=== PATIENT | female | born 1995 | race Caucasian/White ===

== ENCOUNTER 2021-07-21 12:06 | Emergency (ER) | payer OTHER ==
[~2021-07-21] VITALS: Ht 165.1 cm; Wt 91.6 kg
[2021-07-21 12:11] VITALS: BP 125/72
[2021-07-21] MEDS ORDERED: KETOROLAC 30 MG/ML VIAL IM ONE (12:25)
--- NOTE | 2021-07-21 12:31 | NUR ---
25 Y/O FEMALE BIB SELF WITH C/O BACK PAIN X2 WEEKS. STATES SHE PICKED UP HER SON 2 WEEKS AGO AND FELT BACK PAIN, HAS BEEN HAVING INTERMITTENT BACK PAIN SINCE, RADIATING TO HER NECK. REPORTS EPISODES OF DIZZINES. REPORTS TAKING MEDICATION FOR PAIN WITH SOME RELIEF. NO BRUISING OR TRAUMA NOTED. MEDHX: DENIES ALLERGIES: DENIES
--- NOTE | 2021-07-21 12:39 | NUR ---
LAB AT BEDSIDE
[2021-07-21 12:50] LABS: BASOPHILS # (AUTO) 0.1 K/uL (0.00-0.22); BASOPHILS % (AUTO) 0.7 % (0.0-2.0); EOSINOPHILS # (AUTO) 0.1 K/uL (0-0.4); EOSINOPHILS % (AUTO) 1.3 % (0.0-4.0); HEMATOCRIT 37.5 % (36-48); HEMOGLOBIN 12.5 g/dL (12.0-16.0); LYMPHOCYTES # (AUTO) 1.9 K/uL (2.5-16.5); LYMPHOCYTES % (AUTO) 23.4 % (20.5-51.1); MEAN CORPUSCULAR HEMOGLOBIN 28 pg (27-31); MEAN CORPUSCULAR HGB CONC 33 g/dL (33-37); MONOCYTES # (AUTO) 0.4 K/uL (0.8-1.0); MONOCYTES % (AUTO) 4.9 % (1.7-9.3); NEUTROPHILS # (AUTO) 5.8 K/uL (1.8-7.7); NEUTROPHILS % (AUTO) 69.7 % (42.2-75.2); PLATELET COUNT (AUTO) 352 K/uL (140-450); RED BLOOD CELL COUNT(AUTO) 4.41 MIL/uL (4.20-5.40); RED CELL DISTRIBUTION WIDTH 14.8 % (11.6-13.7); WHITE BLOOD COUNT (AUTO) 8.3 K/uL (4.8-10.8)
[2021-07-21 13:04] LABS: ALBUMIN 3.6 g/dL (3.4-5.0); ANION GAP 10.2 (8-16); CARBON DIOXIDE 31.3 mmol/L (21-32); POTASSIUM 3.5 mmol/L (3.5-5.1); TOTAL BILIRUBIN 0.3 mg/dL (0.0-1.0)
[2021-07-21] MEDS ORDERED: LIDO1ADH47 TP (13:22)
[2021-07-21] MEDS ORDERED: ACET-8386 PO (13:22)
[2021-07-21 13:29] VITALS: BP 125/72
--- NOTE | 2021-07-21 13:29 | NUR ---
Patient discharged with v/s stable. Written and verbal after care instructions given and explained. Patient alert, oriented and verbalized understanding of instructions. Ambulatory with steady gait. All questions addressed prior to discharge. ID band removed. Patient advised to follow up with PMD. Rx of LIDOCAINE PAIN RELIEF AND HYDROCODONE-ACETAMINOPHEN given. Patient educated on indication of medication including possible reaction and side effects. Opportunity to ask questions provided and answered.
== END 2021-07-21 13:29 | disposition home or self-care (01) ==
LOC: MED 12:06
DX: S39.012A Strain of muscle, fascia and tendon of lower back, initial encounter (principal); X58.XXXA Exposure to other specified factors, initial encounter; Y93.89 Activity, other specified; Y92.89 Other specified places as the place of occurrence of the external cause; Y99.8 Other external cause status
CPT/HCPCS: 36415; 72072; 74176; 80053; 81025; 85025; 96372; 99285; J1885

== ENCOUNTER 2022-01-17 22:04 | Emergency (ER) | payer OTHER ==
[~2022-01-17] VITALS: Ht 165.1 cm; Wt 93.9 kg
[~2022-01-17 22:04] MED LIST: ACET-8386 PO; LIDO1ADH47 TP
[2022-01-17 22:29] VITALS: BP 117/69
--- NOTE | 2022-01-17 22:35 | NUR ---
pt ambulated to bed 11.
[2022-01-17] MEDS ORDERED: KETOROLAC 60 MG/2 ML VIAL IM ONE (23:15)
[2022-01-17] MEDS ORDERED: ACETAMINOPHEN 325 MG TAB PO ONE (23:15)
--- NOTE | 2022-01-17 23:25 | NUR ---
Administered ordered meds without event. US tech at bedside now.
[2022-01-18 00:09] LABS: BASOPHILS # (AUTO) 0.1 K/uL (0.00-0.22); BASOPHILS % (AUTO) 0.6 % (0.0-2.0); EOSINOPHILS # (AUTO) 0.1 K/uL (0-0.4); EOSINOPHILS % (AUTO) 1.3 % (0.0-4.0); HEMATOCRIT 35.8 % (36-48); LYMPHOCYTES % (AUTO) 28.6 % (20.5-51.1); MEAN CORPUSCULAR HEMOGLOBIN 28 pg (27-31); MEAN CORPUSCULAR HGB CONC 34 g/dL (33-37); MEAN CORPUSCULAR VOLUME 83.6 fL (80-94); MONOCYTES # (AUTO) 0.7 K/uL (0.8-1.0); MONOCYTES % (AUTO) 6.7 % (1.7-9.3); NEUTROPHILS # (AUTO) 6.5 K/uL (1.8-7.7); NEUTROPHILS % (AUTO) 62.8 % (42.2-75.2); PLATELET COUNT (AUTO) 338 K/uL (140-450); RED BLOOD CELL COUNT(AUTO) 4.28 MIL/uL (4.20-5.40); WHITE BLOOD COUNT (AUTO) 10.3 K/uL (4.8-10.8)
[2022-01-18 00:45] LABS: ALBUMIN 3.7 g/dL (3.4-5.0); ANION GAP 11.6 (8-16); CARBON DIOXIDE 27.6 mmol/L (21-32); CREATININE 1.1 mg/dL (0.6-1.3); POTASSIUM 3.2 mmol/L (3.5-5.1); TOTAL BILIRUBIN 0.5 mg/dL (0.0-1.0)
--- NOTE | 2022-01-18 00:53 | NUR ---
Pt resting in bed without acute distress. Pt has no needs. Awaiting US result.
[2022-01-18] MEDS ORDERED: NACL 0.9% 1,000 ML IV ONE (01:30)
--- NOTE | 2022-01-18 01:43 | NUR ---
updated pt on results. Pt resting in bed without acute distress. IV established on R AC for CT w/ contrast.
--- NOTE | 2022-01-18 01:50 | NUR ---
Contrast administration and quetionnaire form reviewed and completed w/ pt. refrigeration tech transporting pt to CT via WC.
--- NOTE | 2022-01-18 02:48 | NUR ---
Pt ambulated to and back from toilet. Pt wondering about result. No CT result yet. Pt understanding. Pt has no other needs.
[2022-01-18] MEDS ORDERED: IBUP-2213 PO (04:55)
[2022-01-18] MEDS ORDERED: ONDA-188 SL (04:55)
[2022-01-18 05:00] VITALS: BP 105/69
--- NOTE | 2022-01-18 05:07 | NUR ---
Patient discharged with v/s stable. Written and verbal after care instructions given and explained. Patient alert, oriented and verbalized understanding of instructions. Ambulatory with steady gait. All questions addressed prior to discharge. ID band removed. Patient advised to follow up with PMD. Rx of ibuprofen and zofran given. Patient educated on indication of medication including possible reaction and side effects. Opportunity to ask questions provided and answered.
== END 2022-01-18 05:07 | disposition home or self-care (01) ==
LOC: MED 22:04
DX: R10.31 Right lower quadrant pain (principal); R10.2 Pelvic and perineal pain; Z79.899 Other long term (current) drug therapy
CPT/HCPCS: 36415; 74177; 76856; 80053; 81025; 83690; 85025; 96360; 96372; 99285; J1885; J7030; Q0092; Q9967

== ENCOUNTER 2023-02-13 18:23 | Emergency (ER) | payer OTHER ==
[~2023-02-13] VITALS: Ht 165.1 cm; Wt 90.3 kg
[~2023-02-13 18:23] MED LIST changes: -ACET-8386 PO; +ACET-8905 PO; +IBUP-2213 PO; +ONDA-188 SL
[2023-02-13 19:36] VITALS: BP 120/80
--- NOTE | 2023-02-13 20:00 | NUR ---
C/O LLQ abdominal pain x 1 day. Patient reported, had LLQ abdominal pain since yesterday. PMHx: Ovarian Cyst (Patient stopped medications.), Gastritis
--- NOTE | 2023-02-13 21:24 | NUR ---
Dr. Jenkins examining patient.
[2023-02-13] MEDS ORDERED: KETOROLAC 60 MG/2 ML VIAL IM ONE (21:35)
[2023-02-13 22:00] LABS: BASOPHILS % (AUTO) 0.5 % (0.0-2.0); EOSINOPHILS # (AUTO) 0.2 K/uL (0-0.4); EOSINOPHILS % (AUTO) 1.9 % (0.0-4.0); LYMPHOCYTES # (AUTO) 2.7 K/uL (2.5-16.5); LYMPHOCYTES % (AUTO) 30.7 % (20.5-51.1); MEAN CORPUSCULAR HEMOGLOBIN 28 pg (27-31); MEAN CORPUSCULAR HGB CONC 33 g/dL (33-37); MEAN CORPUSCULAR VOLUME 84.2 fL (80-94); MONOCYTES # (AUTO) 0.6 K/uL (0.8-1.0); MONOCYTES % (AUTO) 6.5 % (1.7-9.3); NEUTROPHILS # (AUTO) 5.2 K/uL (1.8-7.7); NEUTROPHILS % (AUTO) 60.4 % (42.2-75.2); PLATELET COUNT (AUTO) 357 K/uL (140-450); RED BLOOD CELL COUNT(AUTO) 4.63 MIL/uL (4.20-5.40); RED CELL DISTRIBUTION WIDTH 13.9 % (11.6-13.7); WHITE BLOOD COUNT (AUTO) 8.7 K/uL (4.8-10.8)
--- NOTE | 2023-02-13 22:16 | NUR ---
URINE TAKEN TO LAB.
--- NOTE | 2023-02-13 22:22 | NUR ---
Patient taken to bed 5.
[2023-02-13 22:34] LABS: ALBUMIN 4.1 g/dL (3.4-5.0); ANION GAP 10.8 (8-16); CARBON DIOXIDE 31.2 mmol/L (21-32); CREATININE 1.1 mg/dL (0.6-1.3); TOTAL BILIRUBIN 0.4 mg/dL (0.0-1.0)
[2023-02-13] MEDS ORDERED: HYDROcodone/APAP 5/325 MG 1 TAB TAB PO ONE (23:55)
[2023-02-14] MEDS ORDERED: IBUP-2213 PO (00:27)
[2023-02-14] MEDS ORDERED: CEPH-588 PO (00:27)
[2023-02-14] MEDS ORDERED: TRAM50TA3 PO (00:27)
[2023-02-14] MEDS ORDERED: ONDA-188 PO (00:27)
[2023-02-14 00:58] VITALS: BP 120/80
--- NOTE | 2023-02-14 01:00 | NUR ---
Patient discharged with v/s stable. Written and verbal after care instructions given and explained. Patient alert, oriented and verbalized understanding of instructions. Ambulatory with steady gait. All questions addressed prior to discharge. ID band removed. Patient advised to follow up with PMD. Rx of KEXFLEX, IBUPROFEN, ZOFRAN, TRAMADOL given. Patient educated on indication of medication including possible reaction and side effects. Opportunity to ask questions provided and answered. PT LEFT WITHOUT BELONIGNGS
[2023-02-14 04:54] LABS: APPEARANCE,URINE CLEAR (CLEAR); BILIRUBIN,URINE NEGATIVE (NEGATIVE); BLOOD, URINE 3+ (NEGATIVE); COLOR,URINE YELLOW (YELLOW); LEUKOCYTE ESTERASE ,URINE NEGATIVE (NEGATIVE); NITRITE, URINE NEGATIVE (NEGATIVE); UGLUCOSE NEGATIVE (NEGATIVE)
[2023-02-14 05:25] LABS: RBC,URINE 20-50 /HPF (0-5); WBC,URINE 0-5 /HPF (0-5)
[2023-02-14 05:30] LABS: YEAST,URINE Rare /HPF (None Seen)
== END 2023-02-14 00:53 | disposition home or self-care (01) ==
LOC: MED 18:23
DX: N30.90 Cystitis, unspecified without hematuria (principal); Z79.899 Other long term (current) drug therapy
CPT/HCPCS: 36415; 74176; 76856; 80053; 81001; 81025; 85025; 87086; 93976; 96372; 99285; J1885; Q0092

== ENCOUNTER 2023-03-06 14:49 | Emergency (ER) | payer OTHER ==
[~2023-03-06] VITALS: Ht 165.1 cm; Wt 88.9 kg
[~2023-03-06 14:49] MED LIST changes: +CEPH-588 PO; +ONDA-188 PO; +TRAM50TA3 PO
[2023-03-06 15:04] VITALS: BP 123/71
[2023-03-06 17:34] LABS: BASOPHILS # (AUTO) 0.1 K/uL (0.00-0.22); BASOPHILS % (AUTO) 0.8 % (0.0-2.0); EOSINOPHILS # (AUTO) 0.2 K/uL (0-0.4); EOSINOPHILS % (AUTO) 2.2 % (0.0-4.0); HEMATOCRIT 36.1 % (36-48); HEMOGLOBIN 12.1 g/dL (12.0-16.0); LYMPHOCYTES # (AUTO) 2.6 K/uL (2.5-16.5); LYMPHOCYTES % (AUTO) 30.6 % (20.5-51.1); MEAN CORPUSCULAR HEMOGLOBIN 28 pg (27-31); MEAN CORPUSCULAR HGB CONC 34 g/dL (33-37); MEAN CORPUSCULAR VOLUME 83.6 fL (80-94); MONOCYTES # (AUTO) 0.5 K/uL (0.8-1.0); MONOCYTES % (AUTO) 6.4 % (1.7-9.3); NEUTROPHILS # (AUTO) 5.1 K/uL (1.8-7.7); PLATELET COUNT (AUTO) 363 K/uL (140-450); RED BLOOD CELL COUNT(AUTO) 4.32 MIL/uL (4.20-5.40); RED CELL DISTRIBUTION WIDTH 14.4 % (11.6-13.7); WHITE BLOOD COUNT (AUTO) 8.5 K/uL (4.8-10.8)
[2023-03-06] MEDS ORDERED: IBUP-2213 PO (17:36)
[2023-03-06 17:42] LABS: APPEARANCE,URINE CLEAR (CLEAR); BILIRUBIN,URINE NEGATIVE (NEGATIVE); BLOOD, URINE 3+ (NEGATIVE); COLOR,URINE YELLOW (YELLOW); LEUKOCYTE ESTERASE ,URINE NEGATIVE (NEGATIVE); NITRITE, URINE NEGATIVE (NEGATIVE); UGLUCOSE NEGATIVE (NEGATIVE)
[2023-03-06 17:52] LABS: ALBUMIN 3.7 g/dL (3.4-5.0); ANION GAP 9.4 (8-16); CARBON DIOXIDE 31.2 mmol/L (21-32); CREATININE 1.1 mg/dL (0.6-1.3); POTASSIUM 3.6 mmol/L (3.5-5.1); TOTAL BILIRUBIN 0.3 mg/dL (0.0-1.0)
[2023-03-06 18:06] LABS: RBC,URINE TOO NUMEROUS TO COUN /HPF (0-5)
[2023-03-06 18:40] VITALS: BP 123/71
== END 2023-03-06 17:56 | disposition home or self-care (01) ==
LOC: MED 14:49
DX: R10.11 Right upper quadrant pain (principal); Z79.2 Long term (current) use of antibiotics; Z79.1 Long term (current) use of non-steroidal anti-inflammatories (NSAID); Z79.899 Other long term (current) drug therapy
CPT/HCPCS: 36415; 76705; 80053; 81001; 81025; 83690; 85025; 99284; Q0092

== ENCOUNTER 2023-06-09 19:53 | Emergency (ER) | payer OTHER ==
[~2023-06-09] VITALS: Ht 165.1 cm; Wt 88.5 kg
[2023-06-09 20:31] VITALS: BP 109/72; PULSE 81; RESP 18; TEMP 98.4; O2SAT 98
[2023-06-10] MEDS ORDERED: KETOROLAC 30 MG/ML VIAL IM ONE (00:30)
[2023-06-10] MEDS ORDERED: NAPR-54 PO (02:01)
[2023-06-10] MEDS ORDERED: SULF-59 PO (02:01)
[2023-06-10 02:08] VITALS: BP 111/68; PULSE 79; RESP 16; TEMP 98; O2SAT 99
== END 2023-06-10 02:07 | disposition left against medical advice (07) ==
LOC: MED 19:53
DX: N64.4 Mastodynia (principal); Z79.899 Other long term (current) drug therapy
CPT/HCPCS: 81025; 96372; 99284; J1885

== ENCOUNTER 2023-11-01 15:22 | Emergency (ER) | payer OTHER ==
[~2023-11-01] VITALS: Ht 165.1 cm; Wt 86.2 kg
[~2023-11-01 15:22] MED LIST changes: +NAPR-54 PO; +SULF-59 PO
[2023-11-01 15:41] VITALS: BP 94/81; PULSE 107; RESP 16; TEMP 97.3; O2SAT 98
[2023-11-01] MEDS ORDERED: ONDANSETRON 4 MG/2 ML VIAL IVP ONE (16:10)
[2023-11-01] MEDS ORDERED: NACL 0.9% 1,000 ML IV SCH (16:10)
[2023-11-01 16:43] LABS: BASOPHILS % (AUTO) 0.7 % (0.0-2.0); EOSINOPHILS # (AUTO) 0.1 K/uL (0-0.4); EOSINOPHILS % (AUTO) 1.3 % (0.0-4.0); HEMATOCRIT 39.4 % (36-48); HEMOGLOBIN 13.3 g/dL (12.0-16.0); LYMPHOCYTES % (AUTO) 19.4 % (20.5-51.1); MEAN CORPUSCULAR HEMOGLOBIN 28 pg (27-31); MEAN CORPUSCULAR HGB CONC 34 g/dL (33-37); MEAN CORPUSCULAR VOLUME 83.6 fL (80-94); MONOCYTES # (AUTO) 0.4 K/uL (0.8-1.0); MONOCYTES % (AUTO) 7.6 % (1.7-9.3); NEUTROPHILS # (AUTO) 3.7 K/uL (1.8-7.7); PLATELET COUNT (AUTO) 301 K/uL (140-450); RED BLOOD CELL COUNT(AUTO) 4.72 MIL/uL (4.20-5.40); RED CELL DISTRIBUTION WIDTH 14.5 % (11.6-13.7); WHITE BLOOD COUNT (AUTO) 5.2 K/uL (4.8-10.8)
[2023-11-01 16:49] LABS: ANION GAP 7.6 (8-16); CALCIUM 8.6 mg/dL (8.5-10.1); CARBON DIOXIDE 30.7 mmol/L (21-32); CREATININE 1.1 mg/dL (0.6-1.3); POTASSIUM 3.3 mmol/L (3.5-5.1)
[2023-11-01 17:11] LABS: ALBUMIN 3.4 g/dL (3.4-5.0); BILIRUBIN,DIRECT 0.1 mg/dL (0.0-0.3); TOTAL BILIRUBIN 0.2 mg/dL (0.0-1.0); TOTAL PROTEIN, SERUM 8.3 g/dL (6.4-8.2)
[2023-11-01] MEDS ORDERED: ONDANSETRON 4 MG/2 ML VIAL ONE (17:41)
[2023-11-01] MEDS ORDERED: KETOROLAC 30 MG/ML VIAL IVP ONE (17:45)
[2023-11-01] MEDS ORDERED: LOPE-289 PO (17:58)
[2023-11-01] MEDS ORDERED: IBUP-2213 PO (17:58)
[2023-11-01] MEDS ORDERED: ONDA8TAB87 PO (17:58)
[2023-11-01 19:10] VITALS: BP 100/74; PULSE 85; RESP 16; TEMP 97; O2SAT 98
== END 2023-11-01 19:11 | disposition home or self-care (01) ==
LOC: MED 15:22
DX: R10.13 Epigastric pain (principal); R19.7 Diarrhea, unspecified; R11.0 Nausea; Z87.448 Personal history of other diseases of urinary system; Z79.899 Other long term (current) drug therapy; Z79.1 Long term (current) use of non-steroidal anti-inflammatories (NSAID); Z79.2 Long term (current) use of antibiotics; Z88.8 Allergy status to other drugs, medicaments and biological substances
CPT/HCPCS: 36415; 80048; 80076; 81025; 83690; 85025; 96361; 96374; 99283; J1885; J2405; J7030

== ENCOUNTER 2024-07-31 15:38 | Emergency (ER) | payer OTHER ==
[~2024-07-31] VITALS: Ht 165.1 cm; Wt 89.8 kg
[~2024-07-31 15:38] MED LIST changes: +LOPE-289 PO; +NAPR-337 PO; -NAPR-54 PO; +ONDA8TAB87 PO
[2024-07-31 16:06] VITALS: BP 107/71; PULSE 82; RESP 16; TEMP 98; O2SAT 99
[2024-07-31] MEDS: ACETAMINOPHEN EXTRA STRENGTH 500 MG TAB PO ONE (17:17)
[2024-07-31] MEDS ORDERED: ACET500T99 PO (17:17)
== END 2024-07-31 17:37 | disposition home or self-care (01) ==
LOC: MED 15:38
DX: R07.89 Other chest pain (principal); R07.0 Pain in throat; R22.1 Localized swelling, mass and lump, neck; N18.2 Chronic kidney disease, stage 2 (mild); Z79.899 Other long term (current) drug therapy; Z91.041 Radiographic dye allergy status
CPT/HCPCS: 71045; 93005; 99283